=== PATIENT | male | born 1960 | race Caucasian/White ===

== ENCOUNTER 2019-02-10 01:20 | Day surgery (SDC) | payer BC ==
--- NOTE | 2019-01-19 11:24 | EKG ---
FACILITY: [facility] [place] PATIENT NAME: FARZANA GAMA : [id number] MR: [id number] V: [id number] EXAM DATE: ORDERING PHYSICIAN: KAYKAY BENITEZ TECHNOLOGIST: MEENA Test Reason : PRE OP Blood Pressure : / mmHG Vent. Rate : 070 BPM Atrial Rate : 070 BPM P-R Int : 154 ms QRS Dur : 086 ms QT Int : 386 ms P-R-T Axes : 000 -06 -17 degrees QTc Int : 416 ms Normal sinus rhythm Minimal voltage criteria for LVH, may be normal variant Borderline ECG No previous ECGs available Confirmed by LUCAS ARNOLD ([id number]) on 01/19/2019 4:21:38 PM Referred By: EMMANUEL Confirmed By:LUCAS ARNOLD
[~2019-02-10] VITALS: Ht 180.3 cm; Wt 88.0 kg
[~2019-02-10 01:20] MED LIST: ASPI81TA94 PO; GLY25 PO; GOLYTE PO; LANI SUBQ; LISI5TAB25 PO; METF-450 PO; SIMV-49 PO
[2019-02-10 09:28] VITALS: BP 148/97
[2019-02-10] MEDS ORDERED: LIDOCAINE/SOD BICARB 8.4% SYR ID ONE (09:50)
[2019-02-10] MEDS ORDERED: NORMOSOL R SOLN(*) 1000 ML BAG 1,000 ML IV PRN (09:50)
[2019-02-10] MEDS ORDERED: PROPOFOL EMUL(*) 10MG/ML 20 ML 20 ML ONE (10:16)
[2019-02-10 10:24] VITALS: BP 113/76
[2019-02-10 10:30] VITALS: BP 111/71
--- NOTE | 2019-02-10 10:34 | Short(Outpt) Discharge Summary ---
Discharge Summary Reason for Hosp/Final Diag: (1) Family history of colon cancer Hospital Course & Plan: Colonoscopy with polypectomy x1 completed without problems. Recommend colonoscopy in 5 years due to family history. Departure Discharge to: Home, Self Care Discharge Instructions Home Meds Active Scripts Peg/Electrolytes (GOLYTELY SOLUTION) 4,000 Ml Soln, 1 GAL PO ONCE, #1 GAL 0 Refills Prov:KAYKAY BENITEZ MD 12/30/18 Reported Medications Insulin Glargine (LANTUS) Unknown Strength Soln, 15 UNITS SUBQ BID, ML 12/30/18 Metformin Hcl (METFORMIN HCL) Unknown Strength Tablet, 1000 MG PO BID, TAB 12/30/18 Glyburide (GLYBURIDE) Unknown Strength Tab, 10 MG PO BID, TAB 12/30/18 Aspirin (ASPIRIN) Unknown Strength Tab.chew, 81 MG PO QDAY, TAB.CHEW 12/30/18 Simvastatin (SIMVASTATIN) Unknown Strength Tablet, 20 MG PO DAILY, TAB 12/30/18 Lisinopril (LISINOPRIL) Unknown Strength Tablet, 10 MG PO QDAY, TAB 12/30/18 Diet: Regular Activity: As Tolerated Special Instructions: Your colonoscopy was completed without any problems and your prep was excellent (Good Job!!). I removed a single small polyp from your colon and it was sent to pathology. My office will call you in the next week or two to let you know what the polyp is but, in any case, your next colonoscopy should be in 5 years due to your family history. KAYKAY BENITEZ MD Feb 10, 2019 10:34
[2019-02-10 10:42] VITALS: BP 131/84
[2019-02-10 10:44] VITALS: BP 128/89
== END 2019-02-10 11:00 | disposition home or self-care (01) ==
LOC: OR 01:20
PROVIDERS: ATTEND Surgery
DX: Z12.11 Encounter for screening for malignant neoplasm of colon (principal); K63.5 Polyp of colon; Z80.0 Family history of malignant neoplasm of digestive organs; E11.9 Type 2 diabetes mellitus without complications; I10 Essential (primary) hypertension
CPT/HCPCS: 00811; 36416; 45385; 82948; 88305; 93005; J2704